=== PATIENT | female | born 1960 | race Caucasian/White ===

== ENCOUNTER 2022-09-30 10:18 | Outpatient (CLI) | payer OTHER, SELFPAY ==
--- NOTE | ~2022-09-30 | XR_ITS ---
Clinical Indication: Shortness of breath PA and lateral views of the chest: Comparison: None Findings: The lungs are clear, without evidence of focal consolidation or pleural effusion. Cardiome diastinal silhouette is within normal limits. Bones and soft tissues are unremarkable. Impression: Normal chest. Reviewed, dictated and finalized at [facility]. Impression: Normal chest.
== END 2022-09-30 10:19 ==
PROVIDERS: PCP Family Medicine Adolescent Medicine; Visit Provider Physician Assistant
DX: R06.02 Shortness of breath (principal)
CPT/HCPCS: 71046

== ENCOUNTER 2022-10-16 09:28 | Outpatient (CLI) | payer OTHER, SELFPAY ==
--- NOTE | 2022-10-16 13:22 | WPDPFTINT ---
PFT Procedure Performed PFT Procedure Performed Spirometry with Pre/Post Bronchodilator Plethysmography (Lung Vol) Diffusing Cap (DLCO) Flow Vol Loop PFT Interpretation This is a pulmonary function test with pre and post-bronchodilator spirometry, plethysmography and diffusing capacity. The test was performed and results interpreted in accordance with the 2019 and 2005 ATS/ERS Task Force guidelines respectively using the Global Lung Function Initiative-2012 reference equations. Patient demonstrated good effort and cooperation. Reproducibility criteria were met. The quality of the pre bronchodilator spirometry maneuver was Grade A and post bronchodilator spirometry maneuver was Grade A. Findings: Spirometry: The contour the inspiratory and expiratory flow tracing are normal. The pre bronchodilator FVC is 3.92 L, 112% predicted. The pre bronchodilator FEV1 is 2.91 L, 106% predicted. The pre bronchodilator FEV1: FVC ratio 74%. The post bronchodilator FVC is 4.02 L, representing a 2% increase. The post bronchodilator FEV1 is 3.03 L, representing a 4% increase. The post bronchodilator FEV1: FVC ratio is 75%. Plethysmography: The total lung capacity is 5.89 L, 106% predicted. The functional residual capacity is 2.92 L, 92% predicted. The residual volume is 1.96 L, 90% predicted. Diffusing capacity: The diffusing capacity unadjusted for hemoglobin and carboxyhemoglobin is 20.2, 88% predicted. The diffusing capacity adjusted for alveolar volume is 4.08, 96% predicted. Impression: The spirometry is normal without evidence of an obstructive abnormality. There is no significant improvement after inhaling a single dose of albuterol. The lung volumes are normal. The diffusing capacity is normal. There are no prior studies for comparison
== END 2022-10-16 09:29 | disposition home or self-care (01) ==
PROVIDERS: PCP Family Medicine Adolescent Medicine; Visit Provider Physician Assistant
DX: R06.02 Shortness of breath (principal)
CPT/HCPCS: 94060; 94726; 94729

== ENCOUNTER 2023-10-02 13:07 | Outpatient (CLI) | payer OTHER, SELFPAY ==
--- NOTE | ~2023-10-02 | XR_ITS ---
XR ankle LT 2V DATE: 10/02/2023 13:54 INDICATION: Left ankle sprain TECHNIQUE: AP and lateral views COMPARISON: None FINDINGS: 3 ossicles are noted at the inferior aspect of the medial malleolus. No recent fracture or dislocatio n of the ankle or disruption of the ankle mortise is evident. No periosteal reaction or bone destruct ion. Mild plantar and slight posterior calcaneal enthesopathy. IMPRESSION: No recent fracture is detected Calcaneal enthesopathy Reviewed, dictated and finalized at location B.
--- NOTE | ~2023-10-02 | XR_ITS ---
XR knee RT 3V DATE: 10/02/2023 13:54 INDICATION: Right knee pain TECHNIQUE: AP, lateral, sunrise views COMPARISON: None FINDINGS: Small suprapatellar knee joint effusion and. There is mild periarticular spurring of the patella and more prominent periarticular spurring at the lateral compartment. Mild loss of height of lateral compartment joint space. No fracture, dislocation, periosteal reaction or bone destruction, radiopaque intra-articular loose b wes or chondral calcinosis is detected. IMPRESSION: Osteoarthritis involving primarily the lateral and patellofemoral compartment Small knee joint effusion Reviewed, dictated and finalized at location B. IMPRESSION: Osteoarthritis involving primarily the lateral and patellofemoral c ompartment Small knee joint effusion
== END 2023-10-02 13:08 ==
PROVIDERS: PCP Nurse Practitioner Family; Visit Provider Nurse Practitioner Family
DX: M25.461 Effusion, right knee (principal); M17.11 Unilateral primary osteoarthritis, right knee; M77.32 Calcaneal spur, left foot
CPT/HCPCS: 73562; 73600